=== PATIENT | female | born 1990 | race Caucasian/White ===

== ENCOUNTER 2021-12-18 11:48 | Emergency (ER) | payer BC, SELFPAY ==
--- NOTE | ~2021-12-18 | XR_ITS ---
EXAMINATION: XR chest 2V EXAM DATE: 12/18/2021 12:24 INDICATION: COVID + 12/02/21,congestion; exercised induced asthma as child. TECHNIQUE: Frontal and lateral projections of the chest obtained and reviewed. There is no prior kiara dy for comparison. FINDINGS: Mild hyperinflation. The lungs are clear. There are no pleural effusions. The cardiomedi astinal silhouette is within normal limits. There is no pneumothorax suspected. The bones and soft tissues are unremarkable. IMPRESSION: Clear lungs. Reviewed, dictated and finalized at location A. OR OF PHARMACY IMPRESSION: Clear lungs.
[2021-12-18 12:00] VITALS: BP 112/74; PULSE 83; RESP 16; TEMP 37.1; O2SAT 100
--- NOTE | 2021-12-18 12:02 | ED.URI ---
HPI - URI/Sore Throat General Chief Complaint: Upper Respiratory Infection Stated Complaint: Cold/Flu Time Seen by Provider: 12/18/21 12:09 Source: patient, RN notes reviewed and old records reviewed Mode of arrival: ambulatory Limitations: no limitations History of Present Illness HPI Narrative: 31 year old female who presents to [facility] care with complaints of having COVID on the 02 of December and initial symptoms resolved and she went back to work and was feeling better. Patient reports that on Tuesday she started back with cough, sore throat, nasal congestion and drainage, some back pain and she lost her voice. Yesterday patient reported that she felt pressure type of sensation in her chest with the cough. Patient has been taking Ibuprofen for her symptoms.Patient reports low grade temperatures. MD elicited complaint: fever (low grade), cough, sore throat, rhinorrhea and nasal congestion Onset (ago): day(s) (2 days) Consistency: progressively worsening Related Data Home Medications Medication Instructions Recorded Confirmed norethindrone (contraceptive) 0.35 mg PO DAILY 12/18/21 12/18/21 [Norlyda] Allergies Allergy/AdvReac Type Severity Reaction Status Date / Time No Known Allergies Allergy Mild Verified 12/18/21 12:08 Review of Systems Review of Systems: CONSTITUTIONAL low-grade fever, chills, or sweats. EYES: Denies visual changes, redness, or discharge. ENT: Positive rhinorrhea, congestion, sore throat, no otalgia. CARDIOVASCULAR: Denies chest pain, palpitations, or edema. RESPIRATORY: Positive for cough or dyspnea. GASTROINTESTINAL: Denies abdominal pain, nausea, vomiting, or diarrhea. GENITOURINARY: Denies dysuria or hematuria. SKIN: Denies rash or itching. MUSCULOSKELETAL:Positive for low back pain, joint pain, or myalgia. NEUROLOGIC: Denies headache, numbness, or weakness. PSYCHIATRIC: Denies anxiety or depression. 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 Surgical History Surgical History History of rhinoplasty Family History Family History Mother Patient's mother is in good health Family history of allergic disorder Father Patient's father is in good health Sibling Patient's brother is in good health Grandparent Family history of primary malignant neoplasm of liver Family history of malignant neoplasm of breast Family history of heart disease in male family member before age 55 Social History Social History Smoking status: Never smoker Alcohol intake: current Comments At time of signature, agree with nursing past medical, surgical, social and family history. There is no relevant family history pertinent to the presenting complaint Exam Narrative: GENERAL: Ill-appearing, well-nourished, and in no acute distress. HEAD: Normocephalic, atraumatic. EYES: PERRLA and EOMI. ENT: Nares red and swollen, Clear rhinorrhea no epistaxis. Mucous membranes moist.TM's normal with good light reflex, throat red with no lesions exudates or tonsil enlargement. post nasal drainage present NECK: Supple. no lymphadenopathy CHEST: Coarse breath sounds bases on auscultation. No respiratory distress.cough non productive, SAO2 100% on room air HEART: Regular rate and rhythm. No murmur heard. Normal peripheral pulses. ABDOMEN: Soft, nontender, nondistended, normal active bowel sounds. EXTREMITIES: Normal range of motion. No edema. SKIN: Warm, dry, no rash. NEURO: No focal deficits. Alert and oriented x3. Course Course Level of Care: Express Care Visit Vital Signs Vital signs: Vital Signs Temperature 37.1 C 12/18/21 12:00 Pulse Rate 83 12/18/21 12
== END 2021-12-18 12:42 | disposition home or self-care (01) ==
PROVIDERS: Emergency Provider Registered Nurse
DX: J32.9 Chronic sinusitis, unspecified (principal); Z86.16 Personal history of COVID-19
CPT/HCPCS: 71046; 99213; G0463

== ENCOUNTER 2021-12-29 16:31 | Emergency (ER) | payer BC, SELFPAY ==
[2021-12-29 16:45] VITALS: BP 126/86; PULSE 93; RESP 16; TEMP 37.3; O2SAT 100
--- NOTE | 2021-12-29 16:59 | ED.HA ---
HPI - Headache General Chief Complaint: Headache Stated Complaint: Headache Time Seen by Provider: 12/29/21 16:59 Source: patient, RN notes reviewed and old records reviewed Mode of arrival: ambulatory Limitations: no limitations History of Present Illness HPI Narrative: 31-year-old female who presents to [facility] Care with 4 day history of pain to the top of her head which is stabbing/ throbbing which has now started to be intermittent rates pain a 5/10. Patient had Covid December 02 and then had sinus infection and took a round of Zithromax, continues to have some sinus drainage has not been taking any Zyrtec or Claritin and she reports that Sudafed makes her sleepy. Patient reports that she has no nausea or vomiting with headache, no visual changes, seems to be bothered by fluorescent lights but natural lighting doesn't bother her headache discomfort. MD elicited complaint: headache Pertinent past history: other (Covid November) Onset (ago): day(s) (4) Related Data Home Medications Medication Instructions Recorded Confirmed norethindrone (contraceptive) 0.35 mg PO DAILY 12/18/21 12/29/21 [Norlyda] Allergies Allergy/AdvReac Type Severity Reaction Status Date / Time No Known Allergies Allergy Mild Verified 12/29/21 16:49 Review of Systems Review of Systems: CONSTITUTIONAL: Denies fever, chills, or sweats. EYES: Denies visual changes, redness, or discharge. ENT: Positive rhinorrhea, congestion, scratchy throat, no otalgia. CARDIOVASCULAR: Denies chest pain, palpitations, or edema. RESPIRATORY: Denies cough or dyspnea. GASTROINTESTINAL: Denies abdominal pain, nausea, vomiting, or diarrhea. GENITOURINARY: Denies dysuria or hematuria. SKIN: Denies rash or itching. MUSCULOSKELETAL: Denies back pain, joint pain, or myalgia. NEUROLOGIC: Positive for headache,no numbness, or weakness. PSYCHIATRIC: Denies anxiety or depression. 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 Surgical History Surgical History History of rhinoplasty Family History Family History Mother Patient's mother is in good health Family history of allergic disorder Father Patient's father is in good health Sibling Patient's brother is in good health Grandparent Family history of primary malignant neoplasm of liver Family history of malignant neoplasm of breast Family history of heart disease in male family member before age 55 Social History Social History Smoking status: Never smoker Alcohol intake: current Comments At time of signature, agree with nursing past medical, surgical, social and family history. There is no relevant family history pertinent to the presenting complaint Exam Narrative: GENERAL: Well-appearing, well-nourished, and in no acute distress. HEAD: Normocephalic, atraumatic. EYES: PERRLA and EOMI. no nystagmus noted, ENT: Nares red with clear nasal rhinorrhea no epistaxis. Mucous membranes moist. TM's normal with good light reflex, throat red with white lesions noted on left tonsils no enlargement of tonsils noted. NECK: Supple. no lymphadenopathy CHEST: Clear to auscultation. No respiratory distress.SAO2 100% on room air. HEART: Regular rate and rhythm. No murmur heard. Normal peripheral pulses. ABDOMEN: Soft, nontender, nondistended, normal active bowel sounds. EXTREMITIES: Normal range of motion. No edema. SKIN: Warm, dry, no rash. NEURO: No focal deficits. Alert and oriented x3. Course Course Level of Care: Express Care Visit Vital Signs Vital signs: Vital Signs Temperature 37.3 C 12/29/21 16:45 Pulse Rate 93 12/29/21 16:45 Respiratory Rate
== END 2021-12-29 17:34 | disposition home or self-care (01) ==
PROVIDERS: Emergency Provider Registered Nurse
DX: J03.90 Acute tonsillitis, unspecified (principal); R51.9 Headache, unspecified; J45.990 Exercise induced bronchospasm; Z86.16 Personal history of COVID-19
CPT/HCPCS: 87081; 99213; G0463

== ENCOUNTER 2022-08-31 15:57 | Emergency (ER) | payer BC, SELFPAY ==
[2022-08-31 16:08] VITALS: BP 112/76; PULSE 101; RESP 18; TEMP 36.8; O2SAT 98
--- NOTE | 2022-08-31 16:21 | ED.GENADULT ---
HPI - General Adult General Chief complaint: Fall Stated complaint: tailbone pain/fall History of Present Illness HPI narrative: 32 y/o female. PMHx none reported. Presents to [facility] today with acute complaints of Coccyx/Tailbone bone. Client reports to have suffered a mechanical injury. She had been going down a slide with her 3 year old toddler yesterday, and was not able to stand up at the end of the slide, so she slid down to buttock on ground. Continued tailbone soreness since occurrence. 'Tender' pain, worse with sitting, and somewhat relieved when standing. No open wounds or additional injury identified. No low back pain, loss of lower extremity/bowel-bladder sensation or control. She is actively 20 weeks gestation , however without related concerns. No abdominal pain, pelvic pain, vaginal bleeding. She had already spoken with her [facility] this AM, and relays no additional issues. Related Data Home Medications Medication Instructions Recorded Confirmed vits 75-iron 28 mg-folic 1 pkg PO DAILY 08/31/22 08/31/22 acid 800 mcg-omega3 440 mg oral pack Allergies Allergy/AdvReac Type Severity Reaction Status Date / Time No Known Allergies Allergy Mild Verified 08/31/22 16:13 Review of Systems Review of Systems: CONSTITUTIONAL: Denies fever, chills, sweats. EYES: Denies visual changes, redness, discharge. ENT: Denies rhinorrhea, congestion, sore throat, otalgia. CARDIOVASCULAR: Denies chest pain, palpitations, edema. RESPIRATORY: Denies dyspnea, wheezing, cough GASTROINTESTINAL: Denies abdominal pain, pelvic pain, nausea, vomiting, diarrhea. , no related issues. GENITOURINARY: Denies dysuria, hematuria, abnormal discharge. No vaginal bleeding. SKIN: Denies rash or itching. MUSCULOSKELETAL: Tailbone pain. Denies additional back pain, joint pain, or myalgia. NEUROLOGIC: Denies numbness, or focal weakness. PSYCHIATRIC: Denies anxiety or depression. 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 Surgical History Surgical History History of rhinoplasty Family History Family History Mother Patient's mother is in good health Family history of allergic disorder Father Patient's father is in good health Sibling Patient's brother is in good health Grandparent Family history of primary malignant neoplasm of liver Family history of malignant neoplasm of breast Family history of heart disease in male family member before age 55 Social History Social History Smoking status: Never smoker Alcohol intake: current Exam Narrative: GENERAL: This is a well-nourished, well-developed adult, in no apparent distress. HEAD: normocephalic, atraumatic. EYES: PERRL. Sclera clear/white. NECK: Neck supple, non-tender without lymphadenopathy, masses or thyromegaly. CARDIOVASCULAR: Regular rate and rhythm without murmurs, gallops, or rubs. Strong pulses BLE. RESPIRATORY: Clear to auscultation. Breath sounds equal bilaterally. No wheezes, rales, or rhonchi. GASTROINTESTINAL: Abdomen soft, non-tender. SKIN: warm, intact with no suspicious lesions or rash. Minimal and small bruise overlying mid-tail bone. No open injury, laceration, or deep tissue disturbance. NEURO: Alert, active, and age appropriate. No focal neurologic deficits. Good sensation and discrimination BLE. MUSCULOSKELETAL: With mild point tenderness overlying mid upper tailbone. No obvious bony deformity. No gross soft tissue swelling or hematoma. No midline spinal tenderness or step-off. Bilateral Hips negative. BLE unremarkable. Otherwise normal exam. Course Course Level of Care: Express Care Visit Vital Signs
== END 2022-08-31 16:23 | disposition home or self-care (01) ==
PROVIDERS: Emergency Provider Nurse Practitioner Adult Health; PCP Obstetrics & Gynecology
DX: S30.0XXA Contusion of lower back and pelvis, initial encounter (principal); W09.0XXA Fall on or from playground slide, initial encounter; J45.990 Exercise induced bronchospasm; Z86.16 Personal history of COVID-19
CPT/HCPCS: 99212; G0463